=== PATIENT | male | born 1995 | race Caucasian/White ===

== ENCOUNTER 2017-11-10 21:41 | Emergency (ER) | payer OTHER ==
[2017-11-10 21:46] VITALS: BP 141/84
[2017-11-10] MEDS ORDERED: ACETAMINOPHEN 500 MG TAB PO ONE (21:58)
[2017-11-10] MEDS ORDERED: ONDANSETRON DISINTEGRATING 4 MG TAB PO ONE (21:58)
--- NOTE | 2017-11-10 22:01 | EDPHY ---
H & P Stated Complaint: fever/chills starting at 1700 Time Seen by Provider: 11/10/17 21:47 HPI/ROS: Chief Complaint: Fever HPI: 22-year-old male is presenting complaining of fever, nausea vomiting. Patient states he started feeling chills during class about 5:00 a.m. This evening. He went home took some cold medicine but promptly vomited not. He has been drinking Gatorade, green tea and water since then. He did again take Advil about 930 but states he vomited at about 30 min later. Continue subjective chills alternating with sweats. Mild sore throat. Mild dry nonproductive cough, abdominal pain. Mild body aches. Did have a headache but that has since resolved. No neck pain or stiffness. ROS: 10 systems were reviewed and were negative except those elements noted in the HPI. PMH: Denies Social History: No smoking, occasional alcohol, occasional marijuana Family History: non-contributory Physical Exam: Gen: Awake, Alert, No Distress HEENT: Nose: no rhinorrhea Eyes: PERRLA, EOMI Mouth: Moist mucosa mild generalized oral pharyngeal erythema with moderate exudate, uvula is midline, no significant edema Neck: Supple, no JVD Chest: nontender, lungs clear to auscultation Heart: S1, S2 normal, no murmur Abd: Soft, non-tender, no guarding Back: no CVA tenderness, no midline tenderness Ext: no edema, non-tender Skin: no rash Neuro: CN II-XII intact, Sensation grossly intact, Strength 5/5 in bilateral upper and lower extremities - Personal History Current Tetanus/Diphtheria Vaccine: Yes Current Tetanus Diphtheria and Acellular Pertussis (TDAP): Yes - Medical/Surgical History Hx Asthma: No Hx Chronic Respiratory Disease: No Hx Diabetes: No Hx Cardiac Disease: No Hx Renal Disease: No Hx Cirrhosis: No Hx Alcoholism: No Hx HIV/AIDS: No Hx Splenectomy or Spleen Trauma: No Other PMH: none - Social History Smoking Status: Never smoked Constitutional: Initial Vital Signs Temperature (C) 37.2 C 11/10/17 21:43 Heart Rate 109 H 11/10/17 21:43 Respiratory Rate 14 11/10/17 21:43 Blood Pressure 141/84 H 11/10/17 21:43 O2 Sat (%) 95 11/10/17 21:43 O2 Delivery Mode Room Air Allergies/Adverse Reactions: No Known Allergies Allergy (Verified 11/10/17 21:46) Home Medications: Medication Instructions Recorded NK [No Known Home Meds] 11/10/17 Medical Decision Making ED Course/Re-evaluation: 22-year-old male with flu-like symptoms. He does have significant or pharyngeal edema exudate. Rapid strep is negative. Symptoms consistent with viral URI. He is afebrile here. He is improved after Zofran and acetaminophen. Will discharge with alternating Tylenol and Motrin, fluids, rest , follow up at [facility]. - Data Points Laboratory Results: 11/10/17 11/10/17 Unknown 22:00 Group A Strep Screen NEGATIVE (NEGATIVE) Group A Strep DNA Pending Medications Given: Discontinued Medications Acetaminophen (Tylenol) 1,000 mg PO EDNOW ONE Stop: 11/10/17 21:59 Last Admin: 11/10/17 22:06 Dose: 1,000 mg Ondansetron HCl (Zofran Odt) 4 mg PO EDNOW ONE Stop: 11/10/17 21:59 Last Admin: 11/10/17 22:06 Dose: 4 mg Departure - Departure Disposition: Home, Routine, Self-Care Clinical Impression: Viral syndrome Condition: Good Instructions: Viral Syndrome (ED), Ondansetron (By mouth) Additional Instructions: Alternate acetaminophen (1000 mg) with ibuprofen (400 mg) every 4 hours as needed for fevers, chills, aches or pain. You may take Zofran as needed for nausea vomiting. Drink plenty of fluids, avoid caffeine, alcohol and dairy. Follow up with [facility] in 3-4 days if symptoms are not improving. Referrals: MAGDA BEARD ,. [Clinic] - As per Instructions
[2017-11-10] MEDS ORDERED: ONDANSETRON 4MG PREPACK#2 BTL TAKEHOME ONE (22:20)
== END 2017-11-10 22:32 | disposition home or self-care (01) ==
DX: B34.9 Viral infection, unspecified (principal)